=== PATIENT | female | born 1985 | race Hispanic/Latino ===

== ENCOUNTER 2016-09-16 08:40 | Inpatient (IN) | payer MEDICAID ==
[~2016-09-16] VITALS: Ht 124.5 cm; Wt 70.8 kg
[2016-09-16] MEDS ORDERED: Ondansetron 2 mg/mL 2 mL Inj IVPUSH PRN ×2 (09:10→12:35)
[2016-09-16] MEDS ORDERED: Oxytocin 30 Units/500 mL LR 30 UNITS in IV Premix 1 EACH IV PRN ×2 (09:10→13:25)
[2016-09-16] MEDS ORDERED: fentaNYL-PF 50 mCg/mL 2 mL Inj IVPUSH PRN ×2 (09:10→12:35)
[2016-09-16] MEDS ORDERED: Hemorrhage Kit, Post Partum XX ONE ×2 (09:10→13:25)
[2016-09-16] MEDS ORDERED: Oxytocin 10 Unit/mL Inj IM PRN ×2 (09:10→13:25)
[2016-09-16] MEDS ORDERED: Carboprost 250 mCg/mL Inj IM PRN ×2 (09:10→13:25)
[2016-09-16] MEDS ORDERED: Methylergonovine 0.2 mg/mL Inj IM PRN ×2 (09:10→13:25)
[2016-09-16] MEDS ORDERED: Lactated Ringer's 1,000 ML IV PRN (09:10)
[2016-09-16] MEDS ORDERED: Sodium Chloride LOK Flush 10 mL Syringe IVFLUSH PRN ×2 (09:10→13:25)
[2016-09-16 09:25] LABS: Mean Corpuscular Hemoglobin 29.5 pg (27.0-35.0); Mean Corpuscular Volume 90.2 fL (81-100)
[2016-09-16] MEDS ORDERED: Sodium Citrate-Citric Acid 15 mL Solution PO SCH (11:05)
[2016-09-16] MEDS ORDERED: Gentamicin Per Pharmacist XX ONE (11:05)
[2016-09-16] MEDS ORDERED: Clindamycin Inj 900 MG in IV Premix 1 EACH IV STA (11:07)
[2016-09-16] MEDS ORDERED: Gentamicin Inj 120 MG in Dextrose 5% 100 ML IV STA (11:09)
--- NOTE | 2016-09-16 11:40 | PCM.HPOB ---
Subjective Date of Service: Sep 16, 2016 Referring Provider: Admitting Physician: Nicolette Stone MD Primary Care Physician: Tu Polanco MD Attending Physician: Nicolette Stone MD Chief Complaint Spontaneous rupture of membranes. History of Present History of Present Illness 31 yo at 38 weeks 5 days gestation per 1st trimester US presents to the center with SROM at 0800 this morning. 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 She stopped taking her valtrex one week ago and 3 days ago developed a painful lesion on her left labia, it has not hurt since that time. There was some concern for IUGR but infant does not meet criteria per last known growth ultrasound. Upon presentation cervical exam is 3 cm dilated, 50% effaced, -3 station anterior with contractions 5-6 minutes apart. OB History: (8), Para (3), Term (3), Pre-term, (4), Living (3) Obstetrical Complications: Other (bicornate uterus, HSV1, concern for IUGR growth in 17th percentile) Past Medical History Obstetrical History: #1 SAB #2 08/03/04 in [place] #3 SAB #4 02/18/09 at [facility] #5 #6 SAB #7 SAB Gynecologic History: Bicornate uterus with right cornual fibroids History of abnormal paps Medical History: Anxiety and depression Surgical History: none reported Hx Tobacco Use: No Hx Alcohol Use: No Hx Substance Use: No Past Family History Family History none Genetic Screening/Counseling Genetic Screening/Counseling: Negative Review of Systems Constitutional: Y: Chills, Fever Cardiovascular: Denies: Chest Pain Respiratory: Denies: Cough Gastrointestinal: Denies: Nausea, Vomiting Skin: Reports: Lesions (left labial spot) Medications Home medications Vitamin Vitamin D Valacyclovir 500mg BID stopped 1 week ago Allergy Coded Allergies: Penicillins (Verified Allergy, Unknown, 06/08/09) Exam Vital Signs BP 115/55 HR 90 Exam Baseline 130 moderate variability, accelerations, early decelerations Constitutional: Well-developed, Well-nourished HEENT: Atraumatic Lungs: Clear to Auscultation, Normal Air Movement Heart: Regular Rate/Rhythm, No Murmurs/Rubs/Gallops Abdomen: Gravid, Soft, No tenderness Extremities: Edema (trace in bilateral lower extremities) Skin: Significant Lesions (left labial 1mm vessicle on left labia) Neurological/Psychiatric: Alert, Oriented X3 Neuro: Grossly Neurologically Intact Additional Information Cervix: 3/50/-3, vertex. Gross ROM with clear fluids. Labs/Diagnostics Ultra Sound US on 06/13 shows baby in 17th percentile. US performed with [facility] Sep 07, results unavailable. per patient report baby is fine but they didn't measure. Lab/Diagnostic Information RPR non reactive, HB neg, GC/CT neg, HgA1c 5.3%, HIV NR, Rubella immune, Serum HSV1 IgG positive, Serum HSV2 IgG negative, Quad screen negative Maternal Blood Type: O Hx Rho(D) Immune Globulin: No Antibody Screen: neg Group B Strep Results: Negative OB Intrapartum Assessment/Plan Assessment 31 yo at 38 weeks 5 days gestation presents to the center with SROM at 0800. Patient feeling occasional contractions. Patient with genital lesion with positive serum HSV1 IgG test that could be primary genital infection. Risks and benefit of section and possible HSV infection to baby.Patient understands situation and questions were answered. Pain Management: spinal anaesthesia Pain Evaluation: Adequate Pain Control Intrapartum plan proceed with section Post plan: Continue routine post care Attending Statement The patient was seen and examined together with Dr. Ortega on 09/16/2016 and I agree with the history, exam and plan as outlined in the note above. She has a questionable h/o HSV. She tested + for HSV1 serum. She has h/o a lesions c/w herpes on the genitalia, although she reports that the vulvar sample in the past was negative. She has a 1mm vesicle on the left labia majora with symptoms starting 3 days ago, painful. She has not taken her valacyclovir for 7 days. She has SROM at 8am. Plan for CD for possible active genital HSV outbreak. Risks, benefits and alternatives to the procedure were discussed in detail with the patient with use of a red lead burner via video. She declines tubal ligation. She understands risks to include but are not limited to bleeding, infection, injury to adjacent organ systems. She understands that given SROM, her baby may still be exposed to HSV and pediatrics is aware. She is accepting of a blood transfusion if indicated and risks discussed. All questions answered. Verbal and written consent obtained. SCS will be used for VTE prophylaxis. Gent/Clinda will be used for antibiotics prophylaxis given her h/o angioedema and rash with PCN. / MD [place] Sawyer ERIKA R DO Sep 16, 2016 10:05 Jason Alexis MD Sep 16, 2016 11:45
--- NOTE | 2016-09-16 11:43 | PCM.HPANE ---
Patient Data Surgeon Admitting Provider:Nicolette Stone MD Attending Provider:Nicolette Stone MD Primary Care Physician:Tu Polanco MD Other Provider:Jason Alexis MD Reason for Visit Early Labor EARLY LABOR Ht/WT & BMI Body Mass Index Allergies Coded Allergies: Penicillins (Verified Allergy, Unknown, 06/08/09) History Hx Alcohol Use: NoHx Substance Use: No Smoking Status: Never Smoker Stop/Bang Risk Assessment Category Category 1A: Patient has history of documented sleep apnea, and HAS NOT received any narcotic, sedative or anesthesia administration during this stay. Category 1B: Patient has history of documented sleep apnea, and HAS received any narcotic , sedative or anesthesia administration during this stay Category 2: Patient has SUSPECTED Obstructive Sleep Apnea, and HAS received any narcotic , sedative or anesthesia administration during this stay. Category 3: Patient has SUSPECTED Obstructive Sleep Apnea and HAS NOT received narcotic, sedative or anesthesia administration during this stay. Category 4: Outpatient in Procedural Areas with known sleep apnea or who screen positive for High Risk via the STOP/BANG questionnaire. Exam Exam General Appearance: Alert, Oriented X3, Cooperative HEENT/AIRWAY: MP 2, Neck Movement (from), Mouth Opening (wnl) Lungs: Clear to Auscultation Heart: Exam Unremarkable Meds/Labs/Diagnostics Labs Test 09/16/16 09:15 09/16/16 11:37 White Blood Count 7.6th/mm3 (3.8-10.1) Red Blood Count 4.47mil/mm3 (3.90-5.20) Hemoglobin 13.2g/dL (12.0-15.6) Hematocrit 40.3% (35.0-46.0) Mean Corpuscular Volume 90.2fL (81-100) Mean Corpuscular Hemoglobin 29.5pg (27.0-35.0) Mean Corpuscular Hemoglobin Concent 32.8% (32.0-37.0) Red Cell Distribution Width 15.3% (12.3-15.4) Platelet Count 182bil/L (150-400) Plan Impression Patient chart reviewed, patient interviewed and anesthestic plan with risks, benefits, and alternatives discussed, and informed consent obtained. ASA Physical Status: ASA2 Mod Systemic Disease Anesthetic Plan: SAB (patient ate at 7:30. OB says emergency as patient in labor) Bene/Risks/Altern/Consents: Yes HP Complete Prior to Induction: Yes Jadon Oropeza MD Sep 16, 2016 11:43
[2016-09-16] MEDS ORDERED: EPHEDrine Sulfate 50 mg/mL Inj IVPUSH PRN (12:35)
[2016-09-16] MEDS ORDERED: Atropine 0.4 mg/mL Inj IV PRN (12:35)
[2016-09-16] MEDS ORDERED: Dexamethasone 4 mg/mL Inj IVPUSH PRN (12:35)
[2016-09-16] MEDS ORDERED: EPHEDrine Sulfate 50 mg/mL Inj IM PRN (12:40)
[2016-09-16] MEDS ORDERED: hydrOXYzine Inj 25 MG/1 mL SDV IM PRN (12:40)
--- NOTE | 2016-09-16 13:19 | PCM.ANEP1 ---
Post Anesthesia Phase 1 PACU Phase 1 Assessment Date of Service: Sep 16, 2016 Anesthetic Administered: SAB Level of Alertness: Awake, talking IVY's with Equal Strength: Yes Pain: Yes Nausea or Vomiting: No Oxygen Delivery: Room Air Lungs: Clear to Auscultation Jadon Oropeza MD Sep 16, 2016 13:19
[2016-09-16] MEDS: Lactated Ringer's 1,000 ML IV SCH ×2 (13:23→17:25)
[2016-09-16] MEDS ORDERED: diphenhydrAMINE 50 mg Capsule PO PRN (13:25)
[2016-09-16] MEDS ORDERED: LANOlin HPA 7 Gm Ointment TOPICAL PRN (13:25)
[2016-09-16] MEDS ORDERED: Morphine PCA 1 mg/mL 30 mL Inj IV PRN (13:30)
--- NOTE | 2016-09-16 13:32 | PCM.OBCSEC ---
Delivery Date of Service Sep 16, 2016 Pre Procedure Diagnosis 1. 38w5d 2. Concern for possible IUGR 3. PROM 4. Possible active HSV lesion with history concerning for genital HSV 5. Bicornuate uterus 6. Fibroid uterus Post Procedure Diagnosis 1. 38w5d 2. Concern for possible IUGR 3. PROM 4. Possible active HSV lesion with history concerning for genital HSV 5. Bicornuate uterus 6. Fibroid uterus Procedure Primary low transverse delivery Allopathic Doctor/Medical Collections Representative Surgeon: Jason Alexis MD Assistants/Resident: Suzie Ortega DO, HO1 Indication for Procedure 31 yo at 38 weeks 5 days gestation per 1st trimester US presents to the center with SROM at 0800 this morning. She has a high risk complicated by bicornuate uterus, and has positive HSV1 serum test and unclear genital history. She stopped taking her valtrex one week ago and 3 days ago developed a painful lesion on her left labia. There was some concern for IUGR but does not meet criteria per last known growth ultrasound. Upon presentation cervical exam is 3 cm dilated, 50% effaced, -3 station anterior with contractions 5-6 minutes apart and was grossly ruptured with clear fluids. Exam showed a 1 mm left labia veicle, possible HSV. Decision made for . Verbal and written consent obtained. Findings Uterus - bicornuate with fibroids. Baby in the left horn. Normal bilateral tubes and ovaries. Obstetrical Findings: (Female) Cord (3 Vessel) Weight ( grams) Presentation (Vertex) 1 minute (8) 5 minutes (9) Placenta (Intact/Normal) Complications None Analgesia/Medications Obstetrical Anesthesia: Other (Spinal) Procedure Details The patient was taken to the OR where a time out was performed to confirm the correct patient and the correct procedure. Spinal anesthesia was established. She was placed in dorsal supine with a leftward tilt. Fitch was placed. SCDs placed. She was prepped and draped in the usual sterile fashion. The anesthesia was tested and found to be adequate. A scalpel was then used to make a Pfannenstiel incision and carried down to the underlying fascia. A transverse incision was made in the fascia, and the fascial incision was extended transversely. Sharp and blunt dissection was used to separate the rectus muscle from fascia superiorly and inferiorly. The rectus muscles were then divided in the midline and the peritoneum was identified and entered bluntly. The peritoneal incision was extended and the bladder blade was placed for visualization. A transverse hysterotomy incision was made in the lower uterine segment and extended. The fetus was delivered atraumatically with fundal pressure. The fetus was female. Active warming and stimulation provided for 2 minute. After the umbilical cord was clamped and cut , the was handed to the awaiting resuscitation team. Cord blood was obtained. The placenta was then delivered intact. The uterus was exteriorized. The uterus was then cleared of the remaining clots and debris. The hysterotomy incision was then closed with double layer closure with 0-Vicryl suture. Hemostasis was obtained with additional figure of eight of 0-Vicryl. The posterior culdesac was irrigated and cleared of clots and debris The uterus was replaced into the abdominal cavity. The rectus muscles and fascia were inspected and hemostasis was obtained with bovie. The fascia was then closed in a running fashion using 0-vicryl suture. The subcutaneous tissue was irrigated and hemostasis was assured. Any areas of bleeding were cauterized with Bovie. The subcutaneous layer was closed with 2-0 plain gut. The skin was closed with 4-0 vicryl and Dermabond. Steristrips placed. Instrument, sponge, and needle counts were correct prior to abdominal closure and at the conclusion of the case. The patient tolerated the procedure well and was sent to recovery in stable condition. IVF: 1L crystalloid UOP: 400mL EBL: 600mL Abx: Gent/Clinda VTE Prophylaxis: Ian Specimen Specimens: Placenta Input/Output Catheters: Urethral 2 Way Fitch Blood Loss & Administration Estimated Blood Loss: 600 (mL) Post Operative Plan Post delivery Condition: Mom stable, Baby stable to nursery VTE Prophylaxis: Jason Nixon MD Sep 16, 2016 13:32
[2016-09-16] MEDS: Acetaminophen IV 1,000 MG in IV Premix 1 EACH IV PRN ×2 (13:43→21:20)
[2016-09-16] MEDS ORDERED: fentaNYL-PF 50 mCg/mL 2 mL Inj ONE (14:51)
[2016-09-16] MEDS ORDERED: Oxytocin 10 Unit/mL Inj ONE (14:56)
[2016-09-16] MEDS ORDERED: EPHEDrine/NS 5 mg/mL 5 mL Syringe ONE (14:56)
[2016-09-16] MEDS ORDERED: Phenylephrine/NS-PF 100 mCg/mL 5 mL Syringe IVPUSH ONE (14:56)
[2016-09-16] MEDS ORDERED: Ondansetron 2 mg/mL 2 mL Inj ONE (14:56)
--- NOTE | 2016-09-16 18:22 | PCM.ANEP2 ---
Post Anesthesia Evaluation ASA/CMS Post Anesthesia VS in Patient's Normal Range?: Yes Resp Stable; Airway Patent?: Yes CV Function & Hydration Stable: Yes Mental Status Recovered?: Yes Pain control Satisfactory?: Yes N/V Control Satisfactory?: Yes Jadon Oropeza MD Sep 16, 2016 18:22
[2016-09-17] MEDS: Lactated Ringer's 1,000 ML IV SCH (02:36)
[2016-09-17] MEDS: Acetaminophen IV 1,000 MG in IV Premix 1 EACH IV PRN (05:19)
[2016-09-17 07:18] LABS: Mean Corpuscular Hemoglobin 29.5 pg (27.0-35.0); Mean Corpuscular Volume 91.6 fL (81-100)
[2016-09-17] MEDS: Ascorbic Acid 500 mg Tablet PO SCH (08:18)
[2016-09-17] MEDS: oxyCODONE-Acetamin 5-325 mg Tablet PO PRN ×3 (13:11→21:27)
--- NOTE | 2016-09-17 15:18 | PROG NOTE ---
[address] [address] PROGRESS NOTE PATIENT: NATO RUSSELL : 1985 MR#: [id number] ADMIT: 09/16/2016 JOB ID: [id number] DATE: 09/17/2016 This is a 31-year-old female. She is 4, para 4, now status post section for rupture of membranes, suspected herpes lesion. The patient is recovering well after delivery. Her pain is okay controlled by p.o. medication at this time. 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 She got Toradol and IV Tylenol this morning. We started to switch to p.o. pain medication. She is doing well so far. She voided with normal volume. She was able to ambulate and tolerated her breakfast PHYSICAL EXAMINATION: She is afebrile. Her abdomen is soft, nontender. Incision clean and dry. Extremities nontender. Lochia was not heavy. LABS: Her CBC this morning was H and H is 11.2/34.8. Her WBC 10.7. ASSESSMENT AND PLAN: A 31-year-old female, 4, para 4, now status post primary section for suspected herpes lesion on her vulva. 1. Will continue care. Encouraged ambulating and will continue with p.o. medication for pain. Encouraged regular diet. We will follow up. 2. At this time, patient is still having contact precautions for unknown HSV status. Will continue to follow the culture and the serology.
[2016-09-18] MEDS: oxyCODONE-Acetamin 5-325 mg Tablet PO PRN ×5 (00:22→20:06)
[2016-09-18 06:01] LABS: APPEARANCE,URINE HAZY (CLEAR,HAZY); COLOR,URINE DARK YELLOW (YELLOW); OCCULT BLOOD,URINE LARGE (NEGATIVE); UROBILINOGEN,URINE NORMAL (NORMAL)
[2016-09-18] MEDS: Ascorbic Acid 500 mg Tablet PO SCH (08:31)
--- NOTE | 2016-09-18 09:01 | PCM.DIOB ---
Obstetrical Disch Instruction Date of Service: Sep 18, 2016 Dates of Hospitalization Date of Hospital Admission Sep 16, 2016 at 09:03 Providers Admitting Physician: Nicolette Stone MD Primary Care Physician: Tu Polanco MD Attending Physician: Nicolette Stone MD Discharge Diagnosis Discharge Diagnosis Status post primary section. Post Operative diagnosis 1. 38w5d status post primary section. 2. Concern for possible IUGR 3. PROM 4. Possible active HSV lesion with history concerning for genital HSV 5. Bicornuate uterus 6. Fibroid uterus Problems: Diet Discharge Diet: No restrictions Activity Discharge Activity-General: Pelvic Rest for 6 weeks (no sex, no tampon and no douching), Balance rest and activity, No lifting >10 pounds for 4-6 weeks Dressing and Incisional Care Hygiene: May shower, Wash incision with soap & water (then keep incision dry ) Follow Up Plan Follow-up Provider (F9): Nicolette Stone MD Follow-up appointment: Weeks (Two) Call your provider for: Fever or Chills, Shortness of breath, Heavy vaginal bleeding, Heavy bleeding, Epigastric pain, Excessive constipation, Vaginal discomfort, Red painful breasts, Other (leg swelling, pain, nausea and vomiting , headache or change in vision. ) Nicolette Stone MD Sep 18, 2016 09:01
[2016-09-18] MEDS ORDERED: Ascorbic Acid PO (09:06)
[2016-09-18] MEDS ORDERED: Lanolin TOPICAL (09:06)
[2016-09-18] MEDS ORDERED: IBUP-1827 PO (09:06)
[2016-09-18] MEDS ORDERED: OXYC1TAB24 PO (09:07)
[2016-09-18] MEDS ORDERED: FERR-74 PO (09:07)
[2016-09-18] MEDS ORDERED: DOCU-41 PO (09:07)
--- NOTE | 2016-09-18 09:08 | PCM.DC.OB ---
Obstetrical Discharge Summary Date of Service Sep 19, 2016 Date of hospital admission Sep 16, 2016 at 09:03 Date of Discharge: Sep 19, 2016 Providers Admitting Physician: Wally Alas MD Primary Care Physician: Tu Polanco MD Attending Physician: Wally Alas MD Diagnosis at Time of Discharge Discharge Diagnosis Status post primary section. Post Operative diagnosis 1. 38w5d status post primary section. 2. Concern for possible IUGR 3. PROM 4. Possible active HSV lesion with history concerning for genital HSV 5. Bicornuate uterus 6. Fibroid uterus Problems: Brief History and Physical: 31 yo at 38 weeks 5 days gestation per 1st trimester US presents to the center with SROM at 0800 09/16/2016. 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 She stopped taking her valtrex one week ago and 3 days ago developed a painful lesion on her left labia, it has not hurt since that time. There was some concern for IUGR but does not meet criteria per last known growth ultrasound. Upon presentation cervical exam is 3 cm dilated, 50% effaced, -3 station anterior with contractions 5-6 minutes apart. Patient underwent primary section for suspected HSV lesions. Hospital Course: Delivery Discharge summary DISCHARGE DAY EXAM: A 31-year-old female, 4, para 4, now status post primary section for suspected herpes lesion on her vulva. Postoperative day number 3, patient is ambulating, tolerating regular diet without nausea or vomiting and voiding without difficulty. Pain was well controlled. No chest pain, no headache or change in vision. Lower extremities Doppler negative for DVT Lesion HSV cultures negative Serology pending VS: Reviewed and stable. General: AOX3 Resp: EAE B/L CVS: RRR, S1+S2+0 Abd: Fundus firm below the umbilicus. Incision:intact , clean and dry with no erythema or swelling. Lochia: normal. Lext: no edema. LABS: CBC Test 09/17/16 06:40 White Blood Count 10.7th/mm3 (3.8-10.1) Red Blood Count 3.80mil/mm3 (3.90-5.20) Hemoglobin 11.2g/dL (12.0-15.6) Hematocrit 34.8% (35.0-46.0) Mean Corpuscular Volume 91.6fL (81-100) Mean Corpuscular Hemoglobin 29.5pg (27.0-35.0) Mean Corpuscular Hemoglobin Concent 32.2% (32.0-37.0) Red Cell Distribution Width 15.3% (12.3-15.4) Platelet Count 142bil/L (150-400) labs: Maternal Blood Type: O Hx Rho(D) Immune Globulin: No Antibody Screen: neg Group B Strep Results: Negative RPR non reactive, HB neg, GC/CT neg, HgA1c 5.3%, HIV NR, Rubella immune, Serum HSV1 IgG positive, Serum HSV2 IgG negative, Quad screen negative Disposition: home. Discharge Condition: stable. Diet Discharge Diet: No restrictions Activity Discharge Activity-General: Pelvic Rest for 6 weeks (no sex, no tampon and no douching), Balance rest and activity, No lifting >10 pounds for 4-6 weeks Dressing and Incisional Care Hygiene: May shower, Wash incision with soap & water (then keep incision dry ) Follow Up Plan Follow-up Provider (F9): Wally Alas MD Follow-up appointment: Weeks (Two) Call your provider for: Fever or Chills, Shortness of breath, Heavy vaginal bleeding, Heavy bleeding, Epigastric pain, Excessive constipation, Vaginal discomfort, Red painful breasts, Other (leg swelling, pain, nausea and vomiting , headache or change in vision. ) Wally Alas MD ([Lanolin]) 2 APPLIC/GM OINT 1 APPLIC TOPICAL DIRECTED PRN PRN for breast care Prescribed by: WALLY ALAS MD ([Ascorbic Acid]) 500 MG TABLET 500 MG PO DAILYWM Prescribed by: WALLY ALAS MD Docusate Sodium (Colace) 100 Mg Capsule 100 MG PO BID Prescribed by: WALLY ALAS MD Ferrous Sulfate (Feosol) 325 Mg Tablet 325 MG PO daily Prescribed by: WALLY ALAS MD Ibuprofen (Ibuprofen) 600 Mg Tablet 600 MG PO QID PRN PRN For Pain Prescribed by: WALLY ALAS MD oxyCODONE-Acetaminophen 5-325 mg (oxyCODONE-Acetaminophen 5-325 mg) 1 Each Tablet 1-2 TAB PO Q4H PRN PRN For Pain Prescribed by: MD Chase CHAKRABORTY Omaima A MD Sep 18, 2016 09:08
--- NOTE | 2016-09-18 10:10 | PCM.ANEPRE ---
Anesthesia Pre-Op Review Reason for Review: Right leg pain s/p c section 48 hours ago. Additional Comments Seen and examined patient with foreign language interpreter. 31 year-old female s/p csection on 09/16/16 with new onset pain in her right leg. Reviewing her anesthetic record, there does not appear to be anything suggesting anesthetic issues or difficulty with her spinal anesthetic. Her pain and occasional numbness is on the medial side of her lower leg in a femoral (saphenous) nerve distribution. She does not endorse quadriceps weakness and has been ambulating normally. She denies any bowel or bladder weakness. There are no symptoms on the left leg. Her physical exam is notable for only a small bruise with some tenderness at her site of the spinal anesthetic injection spot. Strength is 5/5 throughout and she endorses numbness in the medial leg and ankle. Her foot sensation appears normal. I do not think her symptoms are related to her spinal anesthetic and I think they will resolve with time. Given the nerve distribution I suspect maybe she had some femoral nerve stretch or swelling related to labor. I counselled her to seek medical care urgently if she notices worsening symptoms, weakness, or bowel or bladder symptoms. I suspect improvement at the time of her next appointment and to inform us if this is not the case. The patient states she understands this and accepts this plan. Luiz Sanchez MD Sep 18, 2016 10:10
[2016-09-18 13:29] VITALS: BP 128/63; PULSE 107; RESP 16
--- NOTE | 2016-09-18 14:24 | NUR ---
Social Work Note - Maddie Crowe is a 31 yr old who delivered baby girl. Pt is , her in the room. CREATIVE MANAGER spoke with pt through leader assembler on a stick. Pt states that she is the only one working in her family - her works sporadically and they have not been able to pay their rent this month. She denies that they are behind from past months. She states that she has not talked with her landlord yet and denies any legal eviction has been started. CREATIVE MANAGER recommended that pt talk with her landlord and explain her situation. Pt is aware of community resources - is enrolled in WIC. CREATIVE MANAGER provided referral to [facility] to ask for help with housing stability services. Pt states she will. Pt's in the room states that he is working on getting a loan and has some money. He states he is not worried about the rent. Pt identifies that she does not have many social supports - no other family in the area. She states she will ask for help at [employer] if needed and denies any other needs. SOY PulidoSW
--- NOTE | 2016-09-18 18:31 | DRSVH ---
PROCEDURE: US VENOUS LEG DUPLEX BILATERAL INDICATIONS: RULE OUT DVT TECHNIQUE: Real-time imaging, as well as color and pulse Doppler interrogation, were performed of the deep veins of both legs from the inguinal ligament to the popliteal fossa. COMPARISON: None. FINDINGS: The deep veins are normally compressible, and free of intraluminal thrombus. Color and pu lse Doppler demonstrate normal phasic intravascular flow. There is normal augmentation response to d istal compression maneuver. IMPRESSION: No DVT found over each lower extremity. Dictated by: José Miguel Lomas M.D. on 09/18/2016 at 18:29 Approved by: José Miguel Lomas M.D. on 09/18/2016 at 18:29
--- NOTE | 2016-09-18 19:35 | PCM.PNOBPP ---
Subjective Date of Service Sep 18, 2016 Post : Primary [place] Delivery Subjective Not ambulating well yet. C/O right hip and foot pain. No swelling. Headache improved with oral pain medication. Lochia: Normal Pain Management: PO pain meds Gastrointestinal: Good Appetite, No N/V, Passing Flatus Postop Activity: Ambulating in Room Only Group B Strep Results: Negative Blood Type: O Labs Laboratory Tests 09/17/16 06:40: White Blood Count 10.7, Red Blood Count 3.80, Hemoglobin 11.2, Hematocrit 34.8, Mean Corpuscular Volume 91.6, Mean Corpuscular Hemoglobin 29.5, Mean Corpuscular Hemoglobin Concent 32.2, Red Cell Distribution Width 15.3, Platelet Count 142 Exam Vital Signs Vital Signs Vital Signs Date Time Temp Pulse Resp B/P Pulse Ox O2 Delivery O2 Flow Rate FiO2 09/18/16 13:29 36.9 107 16 128/63 Vital Signs: VS reviewed, stable Exam Abdomen: Fundus firm Extremities: No tenderness/swelling, Edema 1+ Lungs: Clear to Auscultation, Clear to Percussion Heart: Regular Rate/Rhythm, Normal S1, Normal S2 General: Alert, Oriented X3 Surgical Wound : Incision General Appearence: Steri Strips, Sutures, Intact, Well Approximated, Incision Healing, No Erythemia, No Discharge OB Post Assessment/Plan Assessment A 31-year-old female, 4, para 4, now status post primary section for suspected herpes lesion on her vulva. Postoperative day #2 Lower extremities Doppler negative for DVT Lesion HSV cultures negative Serology pending Encourage ambulation Pain Evaluation: Adequate Pain Control Post plan: Continue routine post care, Discharge home tomorrow Nicolette Stone MD Sep 18, 2016 19:35
[2016-09-19] MEDS: oxyCODONE-Acetamin 5-325 mg Tablet PO PRN ×4 (00:44→11:50)
[2016-09-19] MEDS: Ascorbic Acid 500 mg Tablet PO SCH (07:44)
[2016-09-19 13:08] VITALS: BP 132/87; PULSE 96; RESP 18
--- NOTE | 2016-09-20 13:33 | PATH ---
SURGICAL PATHOLOGY Attending Physician:Jason Alexis MD CASE STATUS: Signed Out PATIENT NAME: NATO RUSSELL PID: [id number] : 1985 DATE COLLECTED:09/16/2016 00:00 SPECIMEN: Placenta CLINICAL HISTORY: PLACENTA, HSV(+) BICORNUATE UTERUS WITH 4CM FIBROID IUGR 1). PLACENTA FINAL DIAGNOSIS: 1.PLACENTA WITH UMBILICAL CORD (NO MEMBRANES): 1. PLACENTA: 319 GRAMS. SINGLE INFARCT NOTED MEASURING UP TO 1.0 CM IN MAXIMUM DIMENSION. CHORIONIC PLATE NEGATIVE FOR EVIDENCE OF VIRAL INCLUSIONS. 2.UMBILICAL CORD: 18.3 CM IN LENGTH WITH THREE NORMAL BLOOD VESSELS. CORD ATTACHED 4.3 CM FROM THE PLACENTAL EDGE. NEGATIVE FOR SIGNIFICANT INFLAMMATION. 3. MEMBRANES: NONE SUBMITTED. ICD10 CODE O98.319 GROSS DESCRIPTION: The specimen is received in formalin, labeled with the patient's name and consists of a placenta and includes placental disc (319 g, 17.0 x 13.5 x 2.5 cm) and umbilical cord (length-18.3 cm, diameter-1.0 x 0.8 cm). The membranes are absent. The umbilical cord is attached 4.3 cm from the edge of the placenta and contains 3 vessels. The surface is smooth and shiny with no evidence of meconium. The maternal surface is dark maroon with normal cotyledon formation. The placental disc is spongy with no hematomas, infarcts, nodules, masses, or lesions. Section code: (A) umbilical cord; (B, C, D-E) placenta, 3 full thickness sections. 09/19/16 MICRO DESCRIPTION: See diagnosis. ICD-9 CODES: CPT CODES: 1: 07131 Electronically Signed Out Neo Carver MD [facility] [address], [place] [address] Technical component performed at [facility], [facility] [address], [address]
== END 2016-09-19 16:30 | disposition home or self-care (01) | DRG 540 ==
LOC: FBCO 08:40 → FBC 09:03
PROVIDERS: ADMIT Obstetrics & Gynecology; ATTEND Obstetrics & Gynecology
PROC: 10D00Z1 Extraction of Products of Conception, Low, Open Approach (ICD-10-PCS; principal; 2016-09-16 11:50)
DX: O98.52 Other viral diseases complicating childbirth (principal); B00.9 Herpesviral infection, unspecified; Z3A.38 38 weeks gestation of pregnancy; Z37.0 Single live birth; O34.03 Maternal care for unspecified congenital malformation of uterus, third trimester; Q51.3 Bicornate uterus; D25.9 Leiomyoma of uterus, unspecified; O42.02 Full-term premature rupture of membranes, onset of labor within 24 hours of rupture